=== PATIENT | female | born 1965 | race Hispanic/Latino ===

== ENCOUNTER 2017-03-17 06:42 | Emergency (ER) | payer OTHER ==
[2017-03-17] MEDS ORDERED: Lidocaine 1% 20 ML MDV ONE (07:00)
[2017-03-17] MEDS ORDERED: Ondansetron HCl/PF 4 MG/2 ML Vial ONE (07:03)
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
== END 2017-03-17 08:20 | disposition home or self-care (01) ==
LOC: SCSER 06:42
DX: S06.0X0A Concussion without loss of consciousness, initial encounter (principal); S01.81XA Laceration without foreign body of other part of head, initial encounter; W20.8XXA Other cause of strike by thrown, projected or falling object, initial encounter; Y99.0 Civilian activity done for income or pay
CPT/HCPCS: 12011; 70450; 96374; J2001; J2405

== ENCOUNTER 2017-07-23 20:06 | Emergency (ER) | payer OTHER, SELFPAY ==
[~2017-07-23 20:06] MED LIST: ISOVUE-370 76%-LOCM 1 ML ONE
[2017-07-23] MEDS ORDERED: Ondansetron HCl/PF 4 MG/2 ML Vial ONE (20:30)
[2017-07-23 20:32] LABS: #Basophils 0.1 thou/uL (0.0-0.2); #Eosinphils 0.3 thou/uL (0.0-0.7); #Lymphocytes 3.6 thou/uL (1.20-3.40); #Monocytes 0.8 thou/uL (0.11-0.59); #Neutrophils 6.8 thou/uL (1.40-6.50); %Basophils 0.9 % (0.0-1.0); %Eosinophils 2.4 % (0.0-10.0); %Lymphocytes 31.4 % (21.0-51.0); %Monocytes 6.5 % (0.0-10.0); %Neutrophils 58.8 % (42.0-75.0); Hemoglobin 13.8 g/dL (12.0-16.0); Mean Corpuscular HGB CONC 34.3 g/dL (32.0-36.0); Mean Corpuscular Hemoglobin 31.1 pg (27.0-31.0); Mean Corpuscular Volume 90.6 fl (81.0-99.0); Mean Platelet Volume 6.8 fL (7.4-10.4); Platelet Count 462 thou/uL (130-400); RBC Distribution Width 12.5 % (11.5-14.5); Red Blood Cell (RBC) Count 4.44 mill/uL (4.20-5.40); White Blood Cell (WBC) Count 11.6 thou/uL (4.8-10.8)
[2017-07-23 20:38] LABS: INR-International Normal Ratio 0.9; PTT 30.6 SEC (22.9-36.1); Prothrombin Time 12.7 SEC (12.0-14.7)
[2017-07-23 20:55] LABS: ALT (SGPT) 23 U/L (8-55); AST (SGOT) 22 U/L (5-34); Albumin 4.4 g/dL (3.5-5.0); Alkaline Phosphatase 95 U/L (40-150); Anion Gap 17 mmol/L (10-20); BUN (Urea Nitrogen) 14 mg/dL (9.8-20.1); Bilirubin, Total 0.3 mg/dL (0.2-1.2); Calc. Creatinine Clearance 0 mL/min (70-130); Calcium 9.6 mg/dL (7.8-10.44); Carbon Dioxide 19 mmol/L (22-29); Chloride 105 mmol/L (98-107); Estimated GFR-MDRD 67; Globulin 4.1 g/dL (2.4-3.5); Glucose 144 mg/dL (70-105); Potassium 3.9 mmol/L (3.5-5.1); Protein, Total 8.5 g/dL (6.0-8.3); Sodium 137 mmol/L (136-145)
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
[2017-07-23 21:36] LABS: Bilirubin Negative (Negative); Blood, Urine Negative (Negative); Clarity CLEAR (Clear); Glucose, Urine (Dipstick) Negative (Negative); Leukocyte Negative (Negative); Nitrite Negative (Negative); Protein, Urine (Dipstick) Negative (Neg-Trace); Specific Gravity, Urine 1.019 (1.002-1.036); Urobilinogen 0.2 mg/dL (0.2-1.0); pH, Urine 6.5 (5.0-9.0)
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
== END 2017-07-23 21:58 | disposition home or self-care (01) ==
LOC: ERS 20:06
DX: R10.30 Lower abdominal pain, unspecified (principal); V43.62XA Car passenger injured in collision with other type car in traffic accident, initial encounter; W22.12XA Striking against or struck by front passenger side automobile airbag, initial encounter
CPT/HCPCS: 36415; 71045; 74177; 80053; 81003; 85025; 85610; 85730; 86850; 86900; 86901; 96361; 96374; 96375; J2270; J2405